=== PATIENT | female | born 1940 | race Caucasian/White ===

== ENCOUNTER 2019-03-04 10:17 | Inpatient (IN) ==
--- NOTE | 2019-03-04 10:46 | Emergency Department Note ---
Disposition Clinical Impression: Anemia Qualifiers: Anemia type: unspecified type Qualified Code(s): D64.9 - Anemia, unspecified Disposition: Admitted As Inpatient Condition: Fair Time of Disposition: 14:37 General Adult HPI - General Stated complaint: Abnormal Labs Time Seen by Provider: 03/04/19 10:24 Nursing Notes Reviewed: Yes Vital Signs Reviewed: Yes - History of Present Illness HPI Narrative: 78-year-old female with no significant past medical history. She states she has not seen a doctor in 10-20 years, a family member recently took her blood pressure at home where it was elevated so she was encouraged to find a primary c are provider recently. The primary care provider ordered general screening labs and imaging which was all negative except for a hemoglobin of 6.7, prompting the patient to present to the emergency department today. The patient denies any symptoms including shortness of breath, chest pain, abdominal pain, bleeding or bruising, dark melanotic stools, vaginal bleeding, reflux. She denies any past surgical history or chronic medical problems, she states she had cellulitis once and might have been told when she was young that she was anemic. She does not use tobacco or alcohol or any other illicit drugs. She does take aspirin, Tylenol, ibuprofen for general aches and pains but does not take any of them combined but does take at least one of those medications daily. Pain Scale: 0 - Related Data Home Medications Medication Instructions Recorded Confirmed Acetaminophen/Diphenhydramine 1 tab PO HS PRN 03/04/19 03/04/19 [Percogesic 325-12.5 mg Tablet] Aspirin/Caffeine [[facility] Back-Body 2 tab PO BID PRN 03/04/19 03/04/19 Pain Relief Cplt] Gluc/Armen-MSM#1/C/Js/Tahir/Bor 1 tab PO DAILY 03/04/19 03/04/19 [Osteo Bi-Flex Caplet] Naproxen Sodium [Aleve] 220 mg PO BID PRN 03/04/19 03/04/19 amLODIPine [Norvasc] 5 mg PO HS 03/04/19 03/04/19 Allergies Allergy/AdvReac Type Severity Reaction Status Date / Time No Known Allergies Allergy Verified 03/04/19 13:40 All systems ED: reviewed and negative except as stated. Review of Systems: As Per HPI Physical Exam - General General appearance: other (78-year-old female who appears stated age, sitting comfortably in bed, conversing normally, generally appears well) - Head Head exam: atraumatic, normocephalic - Eye Eye exam: Present: normal appearance, PERRL - Chest Chest inspection: Present: symmetric chest wall rise - Respiratory Respiratory exam: Present: normal lung sounds bilaterally - Cardiovascular Cardiovascular exam: Present: regular rate, normal rhythm, systolic murmur (4/6 systolic murmur heard best over the upper left sternal border), +S1, +S2 - Abdominal Exam Abdominal exam: Present: soft, Non-Tender - Extremities Exam Extremities exam: Present: other (1+ pitting edema in bilateral lower extremities, otherwise normal inspection of all 4 extremities) - Expanded Lower Extremity Exam Gait: observed and normal - Back Exam Back exam: Present: normal inspection - Neurological Exam Neurological exam: Present: alert, oriented X3 - Skin Skin exam: Present: warm, dry Course Course Narrative: Patient presents due to low hemoglobin of 6.7 identified on outpatient labs, she is otherwise completely asymptomatic, physical exam is benign. We will repeat hemoglobin and hematocrit and type and screen. If repeat hemoglobin is again below 7 we will transfuse 1 unit packed red blood cells and repeat hemoglobin and hematocrit. Vital Signs Temperature 98.5 F 03/04/19 10:22 Pulse Rate 79 03/04/19 10:22 Respiratory Rate 16 03/04/19 10:22 Blood Pressure 155/77 03/04/19 10:22 O2 Sat by Pulse Oximetry 100 03/04/19 10:22 Temperature 99.1 F 03/04/19 18:47 Pulse Rate 83 03/04/19 18:47 Respiratory Rate 17 03/04/19 18:47 Blood Pressure 168/86 03/04/19 18:47 O2 Sat by Pulse Oximetry 97 03/04/19 18:47 Oxygen Delivery Oxygen Delivery Room Air Medical Decision Making - [facility] Narrative Medical decision making narrative: Repeat hemoglobin was 6.2. 2 units packed red blood cells was initiated. Hemoccult negative, there is currently no etiology for the bleeding. Spoke with admitting hospitalist Dr. Kearns who accepted the patient for admission, but requested CT of the chest and abdomen with contrast to evaluate for bleeding. We will transfer the patient to care of the hospitalist service in stable medical condition, CTs of the abdomen and pelvis and chest will be interpreted by and followed by hospitalist service. - Lab Data Lab results reviewed: Yes I reviewed the patient's lab results. Result diagrams: 03/04/19 10:53 Lab Results 03/04/19 03/04/19 03/04/19 Range/Units 10:53 10:53 10:53 Hgb 6.2 L (11.5-15.4) g/dL Hct 24.1 L (35.3-44.9) % Iron (50-170) mcg/dL % Saturation (15-50) % Transferrin (203-362) mg/dL Ferritin (10-120) ng/mL Vitamin B12 255 (250-1100) pg/mL Folate > 22.3 H (3.0-16.0) ng/mL Stool Occult Bld Scrn (Negative) Blood Type O POSITIVE Antibody Screen NEGATIVE Crossmatch See Detail 03/04/19 03/04/19 Range/Units 10:53 11:47 Hgb (11.5-15.4) g/dL Hct (35.3-44.9) % Iron 13 L (50-170) mcg/dL % Saturation 3 L (15-50) % Transferrin 371 H (203-362) mg/dL Ferritin < 8 L (10-120) ng/mL Vitamin B12 (250-1100) pg/mL Folate (3.0-16.0) ng/mL Stool Occult Bld Scrn Negative (Negative) Blood Type Antibody Screen Crossmatch
--- NOTE | 2019-03-04 11:11 | Emergency Department Note ---
Disposition Clinical Impression: Anemia Qualifiers: Anemia type: unspecified type Qualified Code(s): D64.9 - Anemia, unspecified Disposition: Admitted As Inpatient Condition: Fair Time of Disposition: 16:16 (see actual ed d/c time) General Adult HPI - General Chief complaint: ED Recheck/Abnormal Lab/Rx Stated complaint: Abnormal Labs Time Seen by Provider: 03/04/19 10:24 Source: patient Limitations: no limitations - History of Present Illness Pain Scale: 0 - Related Data Home Medications Medication Instructions Recorded Confirmed Acetaminophen/Diphenhydramine 1 tab PO HS PRN 03/04/19 03/04/19 [Percogesic 325-12.5 mg Tablet] Aspirin/Caffeine [[facility] Back-Body 2 tab PO BID PRN 03/04/19 03/04/19 Pain Relief Cplt] Gluc/Armen-MSM#1/C/Js/Tahir/Bor 1 tab PO DAILY 03/04/19 03/04/19 [Osteo Bi-Flex Caplet] Naproxen Sodium [Aleve] 220 mg PO BID PRN 03/04/19 03/04/19 amLODIPine [Norvasc] 5 mg PO HS 03/04/19 03/04/19 Allergies Allergy/AdvReac Type Severity Reaction Status Date / Time No Known Allergies Allergy Verified 03/04/19 13:40 Past Medical History - Past Medical History Medical history: Reports: hypertension Psychiatric history: Reports: no psych history - Social History Smoking Status: Never smoker Alcohol use: Reports: none Drug use: Reports: none Physical Exam - General Limitations: no limitations General appearance: other (78-year-old female who appears stated age, sitting comfortably in bed, conversing normally, generally appears well) Course Vital Signs Temperature 98.5 F 03/04/19 10:22 Pulse Rate 79 03/04/19 10:22 Respiratory Rate 16 03/04/19 10:22 Blood Pressure 155/77 03/04/19 10:22 O2 Sat by Pulse Oximetry 100 03/04/19 10:22 Temperature 98.6 F 03/04/19 13:14 Pulse Rate 86 03/04/19 17:10 Respiratory Rate 18 03/04/19 17:10 Blood Pressure 177/73 03/04/19 17:10 O2 Sat by Pulse Oximetry 99 03/04/19 17:10 Oxygen Delivery Oxygen Delivery Room Air Medical Decision Making - Lab Data Result diagrams: 03/04/19 10:53 Lab Results 03/04/19 03/04/19 03/04/19 Range/Units 10:53 10:53 10:53 Hgb 6.2 L (11.5-15.4) g/dL Hct 24.1 L (35.3-44.9) % Iron (50-170) mcg/dL % Saturation (15-50) % Transferrin (203-362) mg/dL Ferritin (10-120) ng/mL Vitamin B12 255 (250-1100) pg/mL Folate > 22.3 H (3.0-16.0) ng/mL Stool Occult Bld Scrn (Negative) Blood Type O POSITIVE Antibody Screen NEGATIVE Crossmatch See Detail 03/04/19 03/04/19 Range/Units 10:53 11:47 Hgb (11.5-15.4) g/dL Hct (35.3-44.9) % Iron 13 L (50-170) mcg/dL % Saturation 3 L (15-50) % Transferrin 371 H (203-362) mg/dL Ferritin < 8 L (10-120) ng/mL Vitamin B12 (250-1100) pg/mL Folate (3.0-16.0) ng/mL Stool Occult Bld Scrn Negative (Negative) Blood Type Antibody Screen Crossmatch Critical Care Time Critical Care Time: No Attestation Statement - Attestation Attestation: I saw and evalated the patient and and reviewed the resident's note/PA note/LIGHT RAIL TRANSIT OPERATOR note, and I agree with the resident's findings and plan. I personally supervised and was present for the bourgeois/critical portions of the procedures. The medical decision-making was reviewed with the HUMAN PERFORMANCE PROFESSOR/PA/Advanced Practice Nurse/Resident Physician. I agree with the documented findings, disposition and treatment plan as described except to the extent set forth below. . Patient did go to the primary care physician yesterday for evaluation of elevated blood pressure and had labs which showed a hemoglobin of 6.7. This is a microcytic anemia. Patient does use ibuprofen intermittently for arthritis pain. She does not have any unintentional weight loss. No fevers. No blood in the urine or stool. No vomiting. No abdominal pain. This could certainly the from some gastritis and a slow upper GI bleed and we are rechecking the test today including the hemoglobin and hematocrit but will not recheck the electrolytes because these were done yesterday. Hemoccult is being done at this time also. 1111
[2019-03-04 11:16] LABS: Hematocrit 24.1 % (35.3-44.9); Hemoglobin 6.2 g/dL (11.5-15.4)
[2019-03-04] MEDS ORDERED: 0.9 % Sodium Chloride 250 ML ONE ×2 (12:44→18:17)
[2019-03-04] MEDS ORDERED: Isovue-370 500 ML BOTTLE IVP ONE (14:14)
[2019-03-04] MEDS ORDERED: Naloxone 0.4 MG/ML INJ IVP PRN (14:55)
[2019-03-04 15:13] LABS: % Iron Saturation 3 % (15-50); Iron 13 mcg/dL (50-170); Transferrin 371 mg/dL (203-362)
[2019-03-04 15:33] LABS: Ferritin < 8 ng/mL (10-120)
[2019-03-04] MEDS ORDERED: Acetaminophen 325 MG TABLET PO PRN (15:37)
--- NOTE | 2019-03-04 15:38 | Internal Med History&Physical ---
Date of Encounter: 03/04/19 Time of Encounter: 14:55 Internal Medicine - H&P: HPI Chief complaint: abnormal labs Admitted From: Home Plans for Post Hospital Care: Home History of present illness: Ms. Gonzales is a 78 year old female with PMH of arthritis of bilateral knee and hip, hypertension who presents to the ER for evaluation of abnormal lab findings. Patient states she was in her usual state of health until yesterday when her family member found her to have elevated BP prompting her to go see a doctor. Prior to yesterday, pt states she had not seen a doctor in over 10 years. Pt was started on Amlodipine and was sent home after routine lab work was drawn. Pt was asked to return to the ER today for evaluation of Hgb of 6.7, repeat Hgb in the ER was 6.2. She was started on PRBC transfusion. During my evaluation, pt reports of taking over the counter medications (Ibuprofen, aleve) for arthritis pain. She states she did take the BP medication last night as prescribed by her PCP. She denies any headache, dizziness, lightheadedness, chest pain, sob, abd pain, n,v, fever, or chills. No dark stools, hemetemesis, weight loss reported. No acute blood loss reported. Stool occult negative in the ER and CBC findings consistent with microcytic anemia. I spoke with the lab to add iron studies, b12, and folate level to previously drawn labs prior to initiation of PRBC transfusion CT chest/CT abd/pelvis done in the ER, report pending. Pt is also noted to hypertensive in the ER. I have ordered home dose of Aml odipine and Hydralazine. RN requested to recheck BP and administer Amlodipine. Past Med Surg Social Fam HX - Past Medical History Medical history: hypertension Psychiatric history: no psych history - Social History Smoking Status: Never smoker Alcohol use: none Drug use: none Internal Medicine - H&P: Meds Acetaminophen/Diphenhydramine [Percogesic 325-12.5 mg Tablet] 1 tab PO HS PRN 03/04/19 [History] Aspirin/Caffeine [[facility]vs Back-Body Pain Relief Cplt] 2 tab PO BID PRN 03/04/19 [History] Gluc/Armen-MSM#1/C/Js/Tahir/Bor [Osteo Bi-Flex Caplet] 1 tab PO DAILY 03/04/19 [History] Naproxen Sodium [Aleve] 220 mg PO BID PRN 03/04/19 [History] amLODIPine [Norvasc] 5 mg PO HS 03/04/19 [History] Allergy/AdvReac Type Severity Reaction Status Date / Time No Known Allergies Allergy Verified 03/04/19 13:40 All Systems PM: A 10-system review of systems was performed and is negative for pertinent findings except as documented above in the HPI. Review of systems: Ten point ROS is negative except as listed in the HPI - Constitutional Vitals: Temp Pulse Resp BP Pulse Ox 98.6 F 75 16 172/68 100 03/04/19 13:14 03/04/19 13:14 03/04/19 13:14 03/04/19 13:14 03/04/19 13:14 General appearance: Present: A&O X 3 Exam: General: No acute distress, AAO x 3, obese HEENT: EOMI, PERRLA, NC/AT, no scleral icterus Respiratory: Clear to auscultate bilaterally, no wheezing, no rales Cardiovascular: Regular, Rate, Rhythm, + murmur GI: Soft, Non tender, non distended, normal bowel sounds Ext: b/l LE edema, no tenderness, positive pulses Neuro: AAO x 3, no focal deficits, CN II-XII grossly intact Rest of the clinical exam is noncontributory Internal Med - H&P Results - Labs CBC & Chem 7: 03/04/19 10:53 Labs: Short CBC 03/04/19 Range/Units 10:53 Hgb 6.2 L (11.5-15.4) g/dL Hct 24.1 L (35.3-44.9) % - Summary of Assessment and Plan Summary of Assessment and Plan: Ms. Gonzales is a 78 year old female with PMH of arthritis of bilateral knee and hip, hypertension who presents to the ER for evaluation of abnormal lab findings. Assessment/Plan: 1. Anemia currently being transfused 2units PRBC transfusions f/u iron studies, Vitamin B12, Folate level stool occult negative however pt on NSAID therapy at home for arthritis. Will f/u with GI in regards to possible work up inpatient vs. outpatient. will obtain hematology evaluation will closely monitor H&H NPO after midnight for possible EGD in am f/u CT chest, CT abd/pelvis to further evaluate and rule out malignancy 2. HTN Will start home dose of Amlodipine 5mg PO qdaily Hydralazine 10mg IV q6h PRN SBP>150 will closely monitor BP 3. Chronic arthritis tylenol prn pain avoid NSAID use DVT ppx: SCDs LOS < 2 midnights Care plan discussed with patient/consulting provider - Time Spent With Patient Total time spent is greater than 50% in coordination of care (as documented) at patient's floor/unit and/or counseling patient: 25 - 35 minutes
[2019-03-04 15:41] LABS: Folate > 22.3 ng/mL (3.0-16.0); Vitamin B12 255 pg/mL (250-1100)
[2019-03-04] MEDS: amLODIPine 5 MG TABLET PO SCH ×2 (18:19→21:36)
[2019-03-05 03:57] LABS: Eosinophils % 3.4 %; Red Cell Distribution Width 20.8 % (11.5-14.5)
[2019-03-05 03:58] LABS: Basophils % 0.5 %; Eosinophils # 0.1 K/mcL (0.0-0.6); Hematocrit 28.6 % (35.3-44.9); Hemoglobin 7.9 g/dL (11.5-15.4); Immature Granulocytes % 0.5 % (0-4); Lymphocytes # 0.9 K/mcL (0.6-4.6); Lymphocytes % 21.3 %; Mean Corpuscular HGB Conc 27.6 g/dL (31.6-35.5); Mean Corpuscular Hemoglobin 19.7 pg (28.0-33.3); Mean Corpuscular Volume 71.3 fL (83.0-100.0); Mean Platelet Volume 9.9 fL (9.4-12.4); Monocytes # 0.4 K/mcL (0.0-1.3); Monocytes % 9.9 %; Platelet Count 192 K/mcL (140-400); Red Blood Count 4.01 M/mcL (3.82-4.97); Segmented Neutrophils % 64.4 %
[2019-03-05 04:05] LABS: BUN/Creatinine Ratio 23 (6-26); Blood Urea Nitrogen 21 mg/dL (8-23); Calcium 9.2 mg/dL (8.6-10.3); Carbon Dioxide 24 mEq/L (23-29); Chloride 108 mEq/L (98-107); Glucose 124 mg/dL (70-105); Osmolality,Calculated 294 (280-300); Phosphorous 4.1 mg/dL (2.7-4.5); Potassium 3.7 mEq/L (3.5-5.1); Sodium 140 mEq/L (136-145); eGFR For Non-African Americans > 60 (> 60)
[2019-03-05 04:39] LABS: Neutrophils # 2.6 K/mcL (1.6-8.9)
[2019-03-05 05:27] LABS: Anisocytosis 1+ (Not Present); Hypochromasia Present (Not Present); Platelet Estimate Normal (Normal)
--- NOTE | 2019-03-05 08:27 | Anesthesia Evaluation PreOp ---
Date of Encounter: 03/05/19 Time of Encounter: 09:35 - Past History Planned Operation: EGD Cardiac History: HTN Pulmonary History: Denies Any Significant HX DOCUMENT RESTORER History: Denies Any Significant HX Other Medical History: Denies Any Significant HX Anesthesia History: Past Anesthesia (no prior GA) Alcohol Use: none Drug use: none Medications and Allergies Acetaminophen/Diphenhydramine [Percogesic 325-12.5 mg Tablet] 1 tab PO HS PRN 03/04/19 [History] Aspirin/Caffeine [[facility]vs Back-Body Pain Relief Cplt] 2 tab PO BID PRN 03/04/19 [History] Gluc/Armen-MSM#1/C/Js/Tahir/Bor [Osteo Bi-Flex Caplet] 1 tab PO DAILY 03/04/19 [History] Naproxen Sodium [Aleve] 220 mg PO BID PRN 03/04/19 [History] amLODIPine [Norvasc] 5 mg PO HS 03/04/19 [History] Allergy/AdvReac Type Severity Reaction Status Date / Time No Known Allergies Allergy Verified 03/04/19 13:40 - Meds/Allergy Pre-op Review Medications Reviewed: Yes Allergies Reviewed: Yes Beta Blockers on Current Med List: No Anesthesia Results - Labs 03/05/19 02:54 03/05/19 02:54 Anesthesia Exam Vital Signs/O2 Sat/Glucose, Most Recent Temp Pulse Resp BP Pulse Ox 97.7 F 79 16 181/84 96 03/05/19 06:42 03/05/19 06:42 03/05/19 06:42 03/05/19 06:42 03/05/19 06:42 Blood Glucose* 115 Height: 5'3''/1.6m Weight: 196 lbs/89.2 kg NPO (# of Hours): 8 Pain Scale: 0 Pain Scale Used: Numeric (1 - 10) - HEENT Pupil (Motor): EOMI Mallampati: II Teeth: Edentulous Denture Type: Upper: Complete, Lower: Complete Oral Opening: Greater than 3 - DOCUMENT RESTORER LOC: Oriented DOCUMENT RESTORER Motor: Normal RUE, Normal LUE, Normal RLE, Normal LLE, Normal Face DOCUMENT RESTORER Sensory: Normal: RUE, RLE, LLE, Face, Deficit: LUE - Cardiac Rhythm: Regular Murmur: Systolic - Pulmonary Breath Sounds: bilateral Clear Respiratory Effort: Symmetrical Anesthesia Assess/Plan ASA Score: 2 Level of consciousness: Cooperative, Oriented, Tranquil Anesthetic Plan: MAC Monitoring Plan: Standard Monitors
[2019-03-05] MEDS ORDERED: *HR* Propofol 200 MG/20 ML VIAL IVP ONE (08:40)
[2019-03-05] MEDS ORDERED: Lidocaine -MPF 2% 2 ML VIAL ONE (08:40)
[2019-03-05] MEDS ORDERED: *HR* PHENYLEPHRINE 1,000 MCG/10 ML SYRINGE IVP ONE (08:40)
[2019-03-05] MEDS: amLODIPine 5 MG TABLET PO SCH (10:41)
[2019-03-05] MEDS: Cyanocobalamin (B-12) 1,000 MCG/ML VIAL SQ SCH (10:42)
[2019-03-05 12:45] LABS: Alanine Aminotransferase 7 Units/L (7-52); Albumin 3.7 g/dL (3.5-5.7); Albumin/Globulin Ratio 1.4 (1.1-2.2); Alkaline Phosphatase 67 Units/L (34-104); Aspartate Amino Transferase 14 Units/L (13-39); Bilirubin,Direct 0.1 mg/dL (0.0-0.2); Bilirubin,Indirect 0.4 mg/dL (0.0-1.2); Bilirubin,Total 0.5 mg/dL (0.3-1.0); Globulin 2.6 g/dL (2.4-3.5); Total Protein 6.3 g/dL (6.4-8.9)
--- NOTE | 2019-03-05 13:08 | Gastroenterology Consult Note ---
Date of Encounter: 03/05/19 Time of Encounter: 09:30 - Time Spent With Patient Total time spent is greater than 50% in coordination of care (as documented) at patient's floor/unit and/or counseling patient: GI History of Present Illness - Data of Consult Patient: new to practice Consult date: 03/05/19 Requesting Physician: Nika Mariscal MD - Consult Narrative Reason for consult: Anemia History of present illness: Ms. Gonzales is a 78 year old female with PMHx of arthritis and HTN who presented to the ED with anemia. Hgb 6.7 on 03/03 and on presentation here Hgb 6.2. She received 2 units PRBC and this AM Hgb 7.9 with MCV 71.3. On admisison iron 13, ferritin <8, vitamin B12 255, folate >22.3, and fecal occult blood test negative. She has been using ibuprofen and Aleve for her arthritis pain. CT A/P shows hiatal hernia, circumferential distal esophageal wall thickening, gastritis, diverticulosis, mild intra-and extrahepatic biliary ductal dilation with noncalcified choledocholithiasis, gallstones. Procedures: None NSAIDs: ibuprofen, Aleve Anticoagulation: None A/P 1. Anemia Hgb 6.7 on 03/03 and on presentation here Hgb 6.2. On admisison iron 13, ferritin <8, vitamin B12 255, folate >22.3, and fecal occult blood test negative. She received 2 units PRBC and this AM Hgb 7.9 with MCV 71.3. Continue to monitor CBC and transfuse PRBC as needed. Plan for EGD today. If EGD negative, consider colonoscopy. 2. Choledoch[address] CT A/P shows hiatal hernia, circumferential distal esophageal wall thickening, gastritis, diverticulosis, mild intra-and extrahepatic biliary ductal dilation with noncalcified choledocholithiasis, gallstones. Check MRCP. LFTs within normal limits-TB 0.5, AST 14, ALT 7. Past Med Surg Social Fam HX - Past Medical History Medical history: hypertension Psychiatric history: no psych history - Social History Smoking Status: Never smoker Smokeless Tobacco Status: No Alcohol use: none Drug use: none - Gastrointestinal Gastrointestinal: Present: as per HPI - Constitutional Constitutional: as per HPI - EENT Eyes: as per HPI Ears: Present: as per HPI Nose, mouth and throat: Present: as per HPI - Cardiovascular Cardiovascular ROS: Present: as per HPI - Respiratory Respiratory IM: Present: as per HPI - Genitourinary Genitourinary: Absent: change in color, Urinary frequency - Neurological ROS Neurological GI: Present: as per HPI - Hematologic/Lymphatic Hematologic/Lymphatic pediatric: Present: as per HPI - Musculoskeletal Musculoskeletal ROS GI: Present: as per HPI - Integumentary Integumentary GI: Present: as per HPI - Psychiatric ROS Psychiatric GI: Present: as per HPI - Endocrine Endocrine IM: Present: as per HPI - Constitutional Vitals: Temp Pulse Resp BP Pulse Ox 98.2 F 91 16 162/73 97 03/05/19 11:58 03/05/19 09:44 03/05/19 11:58 03/05/19 11:58 03/05/19 11:58 General appearance: Present: cooperative, A&O X 3, no acute distress, answers questions appropriately - Head Head exam: Present: atraumatic, normocephalic - Eye Eye exam: Present: normal appearance, sclera anicteric - ENT ENT exam: Present: mucous membranes dry - Neck Neck exam general surgery: Present: normal inspection, trachea midline - Respiratory Respiratory exam: Present: CTAB. Absent: rales, rhonchi, wheezes - Cardiovascular Cardiovascular exam: Present: RRR, +S1, +S2 - GI/Abdominal GI/Abdominal exam: Present: soft, no peritoneal signs. Absent: distended, firm, guarding, tenderness - Rectal Rectal exam: Present: deferred - Extremities Exam Extremities exam: Present: warm - Neurological Exam Neurological exam: Present: no focal deficits - Psychiatric Psychiatric exam: Present: normal affect, normal mood - Skin Skin exam: Present: dry, intact, normal color, warm Results - Labs CBC & Chem 7: 03/05/19 02:54 03/05/19 02:54 Labs: Last Result 03/05/19 02:54 Calcium 9.2 Entire Visit 03/05/19 03/05/19 02:54 02:54 Hgb 7.9 L D Hct 28.6 L Total Bilirubin 0.5 AST 14 ALT 7 - Impressions Impressions Abdomen/Pelvis CT 03/04/19 14:14 IMPRESSION: 1. Small to moderate sliding hiatal hernia. Suggestion of circumferential wall thickening in the distal thoracic esophagus may represent associated esophagitis. Stranding adjacent to the gastric body may represent gastritis. Consider endoscopy. 2. Mild colonic diverticulosis, a potential source of occult gastrointestinal bleeding. 3. Suspected noncalcified gallstones. Suggestion of hyperenhancement of the cystic duct, a finding that can be seen with cholecystitis. However, no additional findings of cholecystitis are identified. Consider further evaluation with sonography or a nuclear medicine hepatobiliary scan if there are clinical findings of cholecystitis. 4. Mild intrahepatic and extrahepatic biliary dilation with suspected noncalcified choledocholithiasis. Consider MRCP. 5. Solid nodules in the right middle and left lower lobes measure up to 0.6 cm x 0.5 cm, most likely benign sequelae of an infectious or inflammatory process. Recommend follow-up chest CT in 3-6 months as below. Of note, there is also suspected mucoid impaction in a lingular bronchus, although an occult endobronchial lesion is not excluded. Recommend attention on follow-up imaging. 6. Indeterminate bilateral adrenal lesions measuring up to 2.1 cm x 1.1 cm, likely adenomas. Recommend further evaluation with adrenal protocol abdomen CT (preferred) or MRI on a nonemergent basis. 7. 0.7 cm lesion in the interpolar region of the left kidney with indeterminate density, more likely a cyst with proteinaceous contents than a neoplasm. Recommend follow-up with renal protocol abdomen MRI (preferred) or CT in 6-12 months per the ACR recommendations for incidental renal masses. 8. 2.9 cm x 2.3 cm right adnexal cystic lesion with septation and suggestion of mural nodularity, potentially a right ovarian ovarian neoplasm. Recommend further evaluation with sonography on a nonemergent basis. 9. Marked right renal atrophy with right nephrolithiasis. Suspected urothelial enhancement in the right renal pelvis may represent superimposed pyelitis. 10. Additional incidental findings as above. RECOMMENDATIONS: Fleischner Society guidelines for follow-up and management of incidentally detected pulmonary nodules: Multiple Solid Nodules: Nodule size equals 6-8 mm In a low-risk patient, CT at 3-6 months, then consider CT at 18-24 months. In a high-risk patient, CT at 3-6 months, then CT at 18-24 months. - Low risk patients include individuals with minimal or absent history of smoking and other known risk factors. - High risk patients include individuals with a history or smoking or known risk factors. Radiology 2017 http://pubs.rsna.org/doi/full/10.1148/radiol.2420489916 2.9 cm indeterminate ovarian cyst. Recommend prompt follow-up with pelvic US. Reference: J Am Angle Radiol 2013;10:675-681 D/ / Quinton Paul MD / Quinton Paul MD Interpreting Provider: Quinton Paul MD Chest CT 03/04/19 14:14 IMPRESSION: 1. Small to moderate sliding hiatal hernia. Suggestion of circumferential wall thickening in the distal thoracic esophagus may represent associated esophagitis. Stranding adjacent to the gastric body may represent gastritis. Consider endoscopy. 2. Mild colonic diverticulosis, a potential source of occult gastrointestinal bleeding. 3. Suspected noncalcified gallstones. Suggestion of hyperenhancement of the cystic duct, a finding that can be seen with cholecystitis. However, no additional findings of cholecystitis are identified. Consider further evaluation with sonography or a nuclear medicine hepatobiliary scan if there are clinical findings of cholecystitis. 4. Mild intrahepatic and extrahepatic biliary dilation with suspected noncalcified choledocholithiasis. Consider MRCP. 5. Solid nodules in the right middle and left lower lobes measure up to 0.6 cm x 0.5 cm, most likely benign sequelae of an infectious or inflammatory process. Recommend follow-up chest CT in 3-6 months as below. Of note, there is also suspected mucoid impaction in a lingular bronchus, although an occult endobronchial lesion is not excluded. Recommend attention on follow-up imaging. 6. Indeterminate bilateral adrenal lesions measuring up to 2.1 cm x 1.1 cm, likely adenomas. Recommend further evaluation with adrenal protocol abdomen CT (preferred) or MRI on a nonemergent basis. 7. 0.7 cm lesion in the interpolar region of the left kidney with indeterminate density, more likely a cyst with proteinaceous contents than a neoplasm. Recommend follow-up with renal protocol abdomen MRI (preferred) or CT in 6-12 months per the ACR recommendations for incidental renal masses. 8. 2.9 cm x 2.3 cm right adnexal cystic lesion with septation and suggestion of mural nodularity, potentially a right ovarian ovarian neoplasm. Recommend further evaluation with sonography on a nonemergent basis. 9. Marked right renal atrophy with right nephrolithiasis. Suspected urothelial enhancement in the right renal pelvis may represent superimposed pyelitis. 10. Additional incidental findings as above. RECOMMENDATIONS: Fleischner Society guidelines for follow-up and management of incidentally detected pulmonary nodules: Multiple Solid Nodules: Nodule size equals 6-8 mm In a low-risk patient, CT at 3-6 months, then consider CT at 18-24 months. In a high-risk patient, CT at 3-6 months, then CT at 18-24 months. - Low risk patients include individuals with minimal or absent history of smoking and other known risk factors. - High risk patients include individuals with a history or smoking or known risk factors. Radiology 2017 http://pubs.rsna.org/doi/full/10.1148/radiol.6184560832 2.9 cm indeterminate ovarian cyst. Recommend prompt follow-up with pelvic US. Reference: J Am Angle Radiol 2013;10:675-681 D/ / Quinton Paul MD / Quinton Paul MD Interpreting Provider: Quinton Paul MD Echocardiogram 03/04/19 15:53 Impressions: LVEF 65%. Normal LV chamber size, wall thickness and function. Mild left ventricular diastolic dysfunction. Normal right ventricular structure and function. Aortic valve not well visualized. Mild aortic sclerosis suggested by Doppler. Mean gradient 10 mmHg. Mild pulmonary hypertension. Estimated RVSP 43 mmHg. No pericardia effusion. Left Ventricular Wall Motion: Rest Echo Findings All wall segments showed normal motion. Findings: Study Quality * Technically adequate exam. ECG Findings * Normal sinus rhythm. Left Ventricle * LVEF 65%. * Normal LV chamber size, wall thickness and function. * Mild left ventricular diastolic dysfunction. Right Ventricle * Normal right ventricular structure and function. Left Atrium * Moderately dilated left atrium. Right Atrium * Moderately dilated right atrium. Interatrial Septum * No evidence of PFO by color Doppler. Aortic Valve * Aortic valve not well visualized. * No aortic regurgitation. * Mild aortic sclerosis suggested by Doppler. Mean gradient 10 mmHg. Mitral Valve * Normal mitral valve structure and function. * No mitral stenosis. * Trace mitral regurgitation. Tricuspid Valve * Normal tricuspid valve structure and function. * Trace tricuspid regurgitation. * Mild pulmonary hypertension. Estimated RVSP 43 mmHg. Pulmonic Valve * Pulmonic valve not well visualized. * No pulmonic regurgitation. Aorta * Normally sized aortic root. Pericardium * The pericardium appears normal. IVC * Normal IVC dimensions and inspiratory collapse. Pulmonary Artery * Normal visualized portions of the main pulmonary artery. Consult Discharge Plan - Plan Referrals: Sheila Brito CNP [Primary Care Provider] -
--- NOTE | 2019-03-05 13:15 | Oncology Inp Consult Note ---
<Raya Davila L - Last Filed: 03/05/19 15:23> Date of Encounter: 03/05/19 Time of Encounter: 11:00 Assessment and Plan (1) Anemia Status: Acute Assessment and plan: Microcytic, hypochromic anemia Unable to trend baseline, patient has not been seen by a doctor in 10 years Does not take blood thinners Denies s/s bleeding FOBT negative B12/Iron deficiency noted Folate replete LDH/TSH/Ind bili normal GI consulted and following- EGD which revealed non bleeding erosions, non bleeding gastric ulcers Plan: Recommend screening colonoscopy inpatient vs. outpatient B12 SQ Venofer 400 IV x1, will follow with oral iron, please continue at d/c In regards to her multiple incidental findings noted on CT imaging, further evaluation with MRI abdomen with contrast and surveillance imaging may be managed on an outpatient basis by either PCP or Dr. Gallo Will arrange for follow up with Dr. Gallo in ~2 weeks Qualifiers: Anemia type: unspecified type Qualified Code(s): D64.9 - Anemia, unspec ified - Data of Consult Patient: new to practice Consult date: 03/05/19 Requesting Physician: Nika Mariscal MD Primary Care Provider: Sheila Brito CNP - Consult Narrative Reason for consult: Anemia History of present illness: Ms. Kathie Gonzales is a 78 year old female with past medical history significant for arthritis and HTN. She was asked to present to ER after a follow up with newly established PCP (patient has not been seen in over 10 years) for HTN, she was noted to have anemia with hgb 6.2 on routine labs. She has been taking ibuprofen/aleve OTC for her bilateral hip/knee arthritis pain. Patient denies headahce, nausea, chest pain, SOB, abdominal pain, nausea, vomiting, diarrhea, constipation, bowel habit changes, unintended weight loss or appetite changes, melena or hematochezia. She has noticed an increase in BLE edema. Over the past year her "arthritis" pain has worsened in her hips/knees and now uses a cane for ambulation. In ER she was started on PRBC transfusion. CT chest/abdomen/pelvis obtained in ER, reviewed in A&P Past Med Surg Social Fam HX - Past Medical History Medical history: hypertension Psychiatric history: no psych history - Social History Smoking Status: Never smoker Smokeless Tobacco Status: No Alcohol use: none Drug use: none Medications and Allergies Acetaminophen/Diphenhydramine [Percogesic 325-12.5 mg Tablet] 1 tab PO HS PRN 03/04/19 [History] Aspirin/Caffeine [[facility]vs Back-Body Pain Relief Cplt] 2 tab PO BID PRN 03/04/19 [History] Gluc/Armen-MSM#1/C/Js/Tahir/Bor [Osteo Bi-Flex Caplet] 1 tab PO DAILY 03/04/19 [History] Naproxen Sodium [Aleve] 220 mg PO BID PRN 03/04/19 [History] amLODIPine [Norvasc] 5 mg PO HS 03/04/19 [History] Allergy/AdvReac Type Severity Reaction Status Date / Time No Known Allergies Allergy Verified 03/04/19 13:40 Constitutional: Absent: anorexia, chills, fatigue, fever(s), frequent falls, headache(s), weakness, weight loss Eyes: Absent: change in vision Nose, mouth and throat: Absent: dysphagia, odynophagia Cardiovascular: Absent: chest pain Respiratory: Absent: cough, dyspnea Gastrointestinal: Absent: abdominal pain, change in bowel habits, change in stool character, constipation, diarrhea, hematochezia, melena, nausea, vomiting Genitourinary: Absent: dysuria, hematuria Musculoskeletal: Present: arthralgias. Absent: muscle weakness Integumentary: Absent: rash, wounds Neurological: Absent: dizziness, focal weakness Psychiatric: Present: as per HPI Hematologic/Lymphatic: Present: as per HPI Oncology - Exam - Constitutional General appearance: average body habitus, cooperative, no acute distress, no febrile - Head Head exam: Present: atraumatic - ENT ENT exam: Present: mucous membranes moist, normal oropharynx - Respiratory Respiratory exam: Present: CTAB. Absent: respiratory distress - Cardiovascular Cardiovascular exam: Present: RRR - GI/Abdominal GI/Abdominal exam: Present: normal bowel sounds, soft. Absent: tenderness - Extremities Exam Extremities exam: Present: pedal edema. Absent: calf tenderness Additional comments: BLE non pitting edema - Neurological Exam Neurological exam: Present: alert, oriented X3, no focal deficits, strengths equal and symetr throughout - Psychiatric Psychiatric exam: Present: normal affect, normal mood - Skin Skin exam: Present: dry, normal color, warm Consult Discharge Plan - Plan Referrals: Sheila Brito PREPARATOR [Primary Care Provider] - Inpatient Charges Provider: Dr. Marilu Gallo <Miguelangel Gallo - Last Filed: 03/05/19 21:29> Date of Encounter: 03/05/19 - Data of Consult Requesting Physician: Nika Mariscal MD Primary Care Provider: Sheila Brito CNP - Attending Attestation I have seen and examined Ms. Gonzales and agree with the assessment and plan put in place by Ms Davila. Kirill, she is a very pleasant elderly woman in no acute distress. Lungs are clear to auscultation. Heart regular rate and rhythm. Abdomen is soft, nontender, nondistended. Patient has evidence of severe iron deficiency that clinically is most likely from a gastrointestinal source. EGD completed today. Will need colonoscopy. To address anemia, we will general office associate vendor for 400 mg IV times one. I would start Folivane/Integra plus 1 tablet twice a day at time of discharge. She has a biliary tree abnormality for which MRCP has been completed and showed abrupt narrowing of the bile duct at the level of the ampulla. LFTs are normal. GI is following. In addition, she has a possible renal lesion which will need further follow-up with MRI imaging. There is a right adnexal lesion as well. I will plan for MRI of the abdomen and pelvis with and without IV contrast is now outpatient. I will arrange follow-up in my office in 2 weeks with a CBC and iron studies. We will follow-up on his other imaging our maladies at that time. Patient is anxious to return home at some point in the near future. We will otherwise sign off. Please do not hesitate to call with any concerns or questions. Inpatient Charges Provider: Dr. Marilu Gallo Consult - Inpatient Medicare Only: [id number]
--- NOTE | 2019-03-05 14:59 | Internal Med Progress Note ---
Hospitalist Progress Note - Encounter Date of Encounter: 03/05/19 Time of Encounter: 14:56 - Subjective Interval History: Patient seen and examined earlier today with family present at bedside. Pt is scheduled for EGD later today. Denies any abd pain, n/v, fever, or chills. No acute bleeding reported. No overnight events reported. Ten point ROS is negative except as listed above - Exam Vitals: Temp Pulse Resp BP Pulse Ox 98.2 F 91 16 162/73 97 03/05/19 11:58 03/05/19 09:44 03/05/19 11:58 03/05/19 11:58 03/05/19 11:58 Exam: General: No acute distress, AAO x 3, obese HEENT: EOMI, PERRLA, NC/AT, no scleral icterus Respiratory: Clear to auscultate bilaterally, no wheezing, no rales Cardiovascular: Regular, Rate, Rhythm, + murmur GI: Soft, Non tender, non distended, normal bowel sounds Ext: b/l LE edema, no tenderness, positive pulses Neuro: AAO x 3, no focal deficits, CN II-XII grossly intact Rest of the clinical exam is noncontributory - Summary of Assessment and Plan Summary of Assessment and Plan: Ms. Gonzales is a 78 year old female with PMH of arthritis of bilateral knee and hip, hypertension who presents to the ER for evaluation of abnormal lab findings. Assessment/Plan: 1. Anemia s/p 2 units PRBC transfusion repeat H&H within acceptable range iron studies consistent with iron deficiency anemia pt receiving IV venofer. Hematology evaluation appreciated GI on board and evaluation appreciated. Pt scheduled for EGD today Scheduled for MRCP given CT abd/pelvis findings 2. HTN remains hypertensive increased Amlodipine to 10mg PO qdaily added Lisinopril 10mg PO qdaily Hydralazine 10mg IV q6h PRN SBP>150 will closely monitor BP 3. Chronic arthritis tylenol prn pain avoid NSAID use 4. Choledocholithiasis CT A/P shows hiatal hernia, circumferential distal esophageal wall thickening, gastritis, diverticulosis, mild intra-and extrahepatic biliary ductal dilation with noncalcified choledocholithiasis, gallstones f/u MRCP LFTs wnl will f/u with GI based on MRCP findings GI evaluation appreciated DVT ppx: SCDs Care plan discussed with patient/consulting provider/family/RN - Time Spent with Patient Total time spent is greater than 50% in coordination of care (as documented) at patient's floor/unit and/or counseling patient: 25 - 35 minutes Internal Medicine: Result - Labs CBC & Chem 7: 03/05/19 02:54 03/05/19 02:54 Labs: Short CBC 03/05/19 Range/Units 02:54 WBC 4.1 L (4.3-11.1) K/mcL Hgb 7.9 L D (11.5-15.4) g/dL Hct 28.6 L (35.3-44.9) % Plt Count 192 (140-400) K/mcL Neutrophils # 2.6 (1.6-8.9) K/mcL BMP 03/05/19 02:54 Sodium 140 Potassium 3.7 Chloride 108 H Carbon Dioxide 24 BUN 21 Creatinine 0.90 Glucose 124 H Calcium 9.2 Liver Function 03/05/19 Range/Units 02:54 Total Bilirubin 0.5 (0.3-1.0) mg/dL Direct Bilirubin 0.1 (0.0-0.2) mg/dL AST 14 (13-39) Units/L ALT 7 (7-52) Units/L Alkaline Phosphatase 67 (34-104) Units/L Albumin 3.7 (3.5-5.7) g/dL - Impressions Impressions Abdomen/Pelvis CT 03/04/19 14:14 IMPRESSION: 1. Small to moderate sliding hiatal hernia. Suggestion of circumferential wall thickening in the distal thoracic esophagus may represent associated esophagitis. Stranding adjacent to the gastric body may represent gastritis. Consider endoscopy. 2. Mild colonic diverticulosis, a potential source of occult gastrointestinal bleeding. 3. Suspected noncalcified gallstones. Suggestion of hyperenhancement of the cystic duct, a finding that can be seen with cholecystitis. However, no additional findings of cholecystitis are identified. Consider further evaluation with sonography or a nuclear medicine hepatobiliary scan if there are clinical findings of cholecystitis. 4. Mild intrahepatic and extrahepatic biliary dilation with suspected noncalcified choledocholithiasis. Consider MRCP. 5. Solid nodules in the right middle and left lower lobes measure up to 0.6 cm x 0.5 cm, most likely benign sequelae of an infectious or inflammatory process. Recommend follow-up chest CT in 3-6 months as below. Of note, there is also suspected mucoid impaction in a lingular bronchus, although an occult endobronchial lesion is not excluded. Recommend attention on follow-up imaging. 6. Indeterminate bilateral adrenal lesions measuring up to 2.1 cm x 1.1 cm, likely adenomas. Recommend further evaluation with adrenal protocol abdomen CT (preferred) or MRI on a nonemergent basis. 7. 0.7 cm lesion in the interpolar region of the left kidney with indeterminate density, more likely a cyst with proteinaceous contents than a neoplasm. Recommend follow-up with renal protocol abdomen MRI (preferred) or CT in 6-12 months per the ACR recommendations for incidental renal masses. 8. 2.9 cm x 2.3 cm right adnexal cystic lesion with septation and suggestion of mural nodularity, potentially a right ovarian ovarian neoplasm. Recommend further evaluation with sonography on a nonemergent basis. 9. Marked right renal atrophy with right nephrolithiasis. Suspected urothelial enhancement in the right renal pelvis may represent superimposed pyelitis. 10. Additional incidental findings as above. RECOMMENDATIONS: Fleischner Society guidelines for follow-up and management of incidentally detected pulmonary nodules: Multiple Solid Nodules: Nodule size equals 6-8 mm In a low-risk patient, CT at 3-6 months, then consider CT at 18-24 months. In a high-risk patient, CT at 3-6 months, then CT at 18-24 months. - Low risk patients include individuals with minimal or absent history of smoking and other known risk factors. - High risk patients include individuals with a history or smoking or known risk factors. Radiology 2017 http://pubs.rsna.org/doi/full/10.1148/radiol.5135586933 2.9 cm indeterminate ovarian cyst. Recommend prompt follow-up with pelvic US. Reference: J Am Angle Radiol 2013;10:675-681 D/ / Quinton Paul MD / Quinton Paul MD Interpreting Provider: Quinton Paul MD Chest CT 03/04/19 14:14 IMPRESSION: 1. Small to moderate sliding hiatal hernia. Suggestion of circumferential wall thickening in the distal thoracic esophagus may represent associated esophagitis. Stranding adjacent to the gastric body may represent gastritis. Consider endoscopy. 2. Mild colonic diverticulosis, a potential source of occult gastrointestinal bleeding. 3. Suspected noncalcified gallstones. Suggestion of hyperenhancement of the cystic duct, a finding that can be seen with cholecystitis. However, no additional findings of cholecystitis are identified. Consider further evaluation with sonography or a nuclear medicine hepatobiliary scan if there are clinical findings of cholecystitis. 4. Mild intrahepatic and extrahepatic biliary dilation with suspected noncalcified choledocholithiasis. Consider MRCP. 5. Solid nodules in the right middle and left lower lobes measure up to 0.6 cm x 0.5 cm, most likely benign sequelae of an infectious or inflammatory process. Recommend follow-up chest CT in 3-6 months as below. Of note, there is also suspected mucoid impaction in a lingular bronchus, although an occult endobronchial lesion is not excluded. Recommend attention on follow-up imaging. 6. Indeterminate bilateral adrenal lesions measuring up to 2.1 cm x 1.1 cm, likely adenomas. Recommend further evaluation with adrenal protocol abdomen CT (preferred) or MRI on a nonemergent basis. 7. 0.7 cm lesion in the interpolar region of the left kidney with indeterminate density, more likely a cyst with proteinaceous contents than a neoplasm. Recommend follow-up with renal protocol abdomen MRI (preferred) or CT in 6-12 months per the ACR recommendations for incidental renal masses. 8. 2.9 cm x 2.3 cm right adnexal cystic lesion with septation and suggestion of mural nodularity, potentially a right ovarian ovarian neoplasm. Recommend further evaluation with sonography on a nonemergent basis. 9. Marked right renal atrophy with right nephrolithiasis. Suspected urothelial enhancement in the right renal pelvis may represent superimposed pyelitis. 10. Additional incidental findings as above. RECOMMENDATIONS: Fleischner Society guidelines for follow-up and management of incidentally detected pulmonary nodules: Multiple Solid Nodules: Nodule size equals 6-8 mm In a low-risk patient, CT at 3-6 months, then consider CT at 18-24 months. In a high-risk patient, CT at 3-6 months, then CT at 18-24 months. - Low risk patients include individuals with minimal or absent history of smoking and other known risk factors. - High risk patients include individuals with a history or smoking or known risk factors. Radiology 2017 http://pubs.rsna.org/doi/full/10.1148/radiol.7031738226 2.9 cm indeterminate ovarian cyst. Recommend prompt follow-up with pelvic US. Reference: J Am Angle Radiol 2013;10:675-681 D/ / Quinton Paul MD / uQinton Paul MD Interpreting Provider: Quinton Paul MD Echocardiogram 03/04/19 15:53 Impressions: LVEF 65%. Normal LV chamber size, wall thickness and function. Mild left ventricular diastolic dysfunction. Normal right ventricular structure and function. Aortic valve not well visualized. Mild aortic sclerosis suggested by Doppler. Mean gradient 10 mmHg. Mild pulmonary hypertension. Estimated RVSP 43 mmHg. No pericardia effusion. Left Ventricular Wall Motion: Rest Echo Findings All wall segments showed normal motion. Findings: Study Quality * Technically adequate exam. ECG Findings * Normal sinus rhythm. Left Ventricle * LVEF 65%. * Normal LV chamber size, wall thickness and function. * Mild left ventricular diastolic dysfunction. Right Ventricle * Normal right ventricular structure and function. Left Atrium * Moderately dilated left atrium. Right Atrium * Moderately dilated right atrium. Interatrial Septum * No evidence of PFO by color Doppler. Aortic Valve * Aortic valve not well visualized. * No aortic regurgitation. * Mild aortic sclerosis suggested by Doppler. Mean gradient 10 mmHg. Mitral Valve * Normal mitral valve structure and function. * No mitral stenosis. * Trace mitral regurgitation. Tricuspid Valve * Normal tricuspid valve structure and function. * Trace tricuspid regurgitation. * Mild pulmonary hypertension. Estimated RVSP 43 mmHg. Pulmonic Valve * Pulmonic valve not well visualized. * No pulmonic regurgitation. Aorta * Normally sized aortic root. Pericardium * The pericardium appears normal. IVC * Normal IVC dimensions and inspiratory collapse. Pulmonary Artery * Normal visualized portions of the main pulmonary artery. Abdomen MRI 03/05/19 11:10 IMPRESSION: Intra and extrahepatic biliary ductal dilation with abrupt narrowing of duct at the ampulla. No visible choledocholithiasis, though this could be due to a small none visible calculus at the ampulla or biliary stricture. Consider ERCP if LFTs are elevated. Cholelithiasis. Adrenal and left renal lesions are not well visualized due to motion and lack of contrast. D/ / Gregg Soto MD / Gregg Soto MD Interpreting Provider: Gregg Soto MD Consult Discharge Plan - Plan Referrals: Sheila Brito, CONTENT COORDINATOR [Primary Care Provider] -
[2019-03-05] MEDS ORDERED: Iron Sucrose Complex 400 MG in 0.9 % Sodium Chloride 250 ML IVPB ONE (17:00)
[2019-03-06] MEDS ORDERED: Ondansetron 4 MG/2 ML VIAL IVP PRN (06:50)
[2019-03-06 07:32] LABS: Basophils % 0.8 %; Eosinophils % 0.6 %; Hematocrit 33.2 % (35.3-44.9); Hemoglobin 9.2 g/dL (11.5-15.4); Immature Granulocytes % 2.3 % (0-4); Lymphocytes # 0.5 K/mcL (0.6-4.6); Lymphocytes % 10.4 %; Mean Corpuscular HGB Conc 27.7 g/dL (31.6-35.5); Mean Corpuscular Hemoglobin 19.7 pg (28.0-33.3); Mean Corpuscular Volume 71.1 fL (83.0-100.0); Mean Platelet Volume 9.2 fL (9.4-12.4); Monocytes # 0.3 K/mcL (0.0-1.3); Monocytes % 6.3 %; Neutrophils # 4.1 K/mcL (1.6-8.9); Platelet Count 200 K/mcL (140-400); Red Blood Count 4.67 M/mcL (3.82-4.97); Red Cell Distribution Width 21.8 % (11.5-14.5); Segmented Neutrophils % 79.6 %
[2019-03-06 07:41] LABS: BUN/Creatinine Ratio 22 (6-26); Blood Urea Nitrogen 16 mg/dL (8-23); Calcium 9.8 mg/dL (8.6-10.3); Carbon Dioxide 24 mEq/L (23-29); Chloride 107 mEq/L (98-107); Glucose 123 mg/dL (70-105); Osmolality,Calculated 293 (280-300); Phosphorous 3.4 mg/dL (2.7-4.5); Potassium 3.6 mEq/L (3.5-5.1); Sodium 140 mEq/L (136-145); eGFR For Non-African Americans > 60 (> 60)
[2019-03-06 08:18] LABS: Anisocytosis 1+ (Not Present); Hypochromasia Present (Not Present); Platelet Estimate Normal (Normal)
[2019-03-06] MEDS: amLODIPine 5 MG TABLET PO SCH (08:18)
[2019-03-06] MEDS: Cyanocobalamin (B-12) 1,000 MCG/ML VIAL SQ SCH (08:18)
[2019-03-06] MEDS ORDERED: hydrALAZINE 25 MG TABLET PO SCH (08:24)
[2019-03-06] MEDS ORDERED: Lisinopril 20 MG TABLET PO STA (08:37)
--- NOTE | 2019-03-06 12:31 | Internal Med Progress Note ---
Hospitalist Progress Note - Encounter Date of Encounter: 03/06/19 Time of Encounter: 12:27 - Subjective Interval History: Patient seen and examined at bedside. Resting in chair and reported of feeling nauseous this morning which resolved after pt received IV zofran. She was also noted to have elevated BP. She received Lisinopril 20mg, Metoprolol 12.5mg PO this morning. Current BP within acceptable range She denies any headache, dizziness, sob, chest pain, abd pain, n/v, fever, or chills. I spoke with GI about pt's MRCP results, outpatient follow up is recommended Ten point ROS is negative except as listed above Tentative d/c in am depending on appropriate BP control - Exam Vitals: Temp Pulse Resp BP Pulse Ox 98.4 F 84 15 122/68 96 03/06/19 10:37 03/06/19 10:37 03/06/19 10:37 03/06/19 10:37 03/06/19 10:37 Exam: General: No acute distress, AAO x 3, obese HEENT: EOMI, PERRLA, NC/AT, no scleral icterus Respiratory: Clear to auscultate bilaterally, no wheezing, no rales Cardiovascular: Regular, Rate, Rhythm, + murmur GI: Soft, Non tender, non distended, normal bowel sounds Ext: no tenderness, positive pulses Neuro: AAO x 3, no focal deficits, CN II-XII grossly intact Rest of the clinical exam is noncontributory - Summary of Assessment and Plan Summary of Assessment and Plan: Ms. Gonzales is a 78 year old female with PMH of arthritis of bilateral knee and hip, hypertension who presents to the ER for evaluation of abnormal lab findings. Assessment/Plan: 1. Anemia s/p 2 units PRBC transfusion repeat H&H within acceptable range iron studies consistent with iron deficiency anemia pt receiving IV venofer. Hematology evaluation appreciated GI on board and evaluation appreciated. EGD negative for acute bleeding MRCP reviewed, outpatient follow up with GI recommended by GI 2. Uncontrolled HTN remains hypertensive continue Amlodipine to 10mg PO qdaily increased Lisinopril to 20mg PO qdaily added Metoprolol 12.5mg PO BID Hydralazine 10mg IV q6h PRN SBP>150 will closely monitor BP nausea likely secondary to hypertensive Urgency, now resolved 3. Chronic arthritis tylenol prn pain avoid NSAID use 4. Choledocholithiasis CT A/P shows hiatal hernia, circumferential distal esophageal wall thickening, gastritis, diverticulosis, mild intra-and extrahepatic biliary ductal dilation with noncalcified choledocholithiasis, gallstones MRCP report reviewed with GI outpatient follow up with GI recommended LFTs wnl DVT ppx: SCDs Care plan discussed with patient/consulting provider/RN - Time Spent with Patient Total time spent is greater than 50% in coordination of care (as documented) at patient's floor/unit and/or counseling patient: 25 - 35 minutes Internal Medicine: Result - Labs CBC & Chem 7: 03/06/19 07:08 03/06/19 07:08 Labs: Short CBC 03/06/19 Range/Units 07:08 WBC 5.2 (4.3-11.1) K/mcL Hgb 9.2 L (11.5-15.4) g/dL Hct 33.2 L (35.3-44.9) % Plt Count 200 (140-400) K/mcL Neutrophils # 4.1 (1.6-8.9) K/mcL BMP 03/06/19 07:08 Sodium 140 Potassium 3.6 Chloride 107 Carbon Dioxide 24 BUN 16 Creatinine 0.73 Glucose 123 H Calcium 9.8 Liver Function 03/05/19 Range/Units 02:54 Total Bilirubin 0.5 (0.3-1.0) mg/dL Direct Bilirubin 0.1 (0.0-0.2) mg/dL AST 14 (13-39) Units/L ALT 7 (7-52) Units/L Alkaline Phosphatase 67 (34-104) Units/L Albumin 3.7 (3.5-5.7) g/dL - Impressions Impressions Abdomen MRI 03/05/19 11:10 IMPRESSION: Intra and extrahepatic biliary ductal dilation with abrupt narrowing of duct at the ampulla. No visible choledocholithiasis, though this could be due to a small none visible calculus at the ampulla or biliary stricture. Consider ERCP if LFTs are elevated. Cholelithiasis. Adrenal and left renal lesions are not well visualized due to motion and lack of contrast. D/ / Gregg Soto MD / Gregg Soto MD Interpreting Provider: Gregg Soto MD Consult Discharge Plan - Plan Referrals: Sheila Brito CNP [Primary Care Provider] -
[2019-03-07] MEDS ORDERED: Lisinopril 20 MG TABLET PO SCH (09:00)
[2019-03-07] MEDS: amLODIPine 5 MG TABLET PO SCH (09:24)
[2019-03-07] MEDS: Cyanocobalamin (B-12) 1,000 MCG/ML VIAL SQ SCH (09:25)
[2019-03-07 09:43] LABS: Basophils % 0.2 %; Hemoglobin 9.7 g/dL (11.5-15.4); Immature Granulocytes % 0.5 % (0-4); Mean Platelet Volume 9.2 fL (9.4-12.4)
[2019-03-07 09:45] LABS: Eosinophils # 0.1 K/mcL (0.0-0.6); Hematocrit 35.3 % (35.3-44.9); Lymphocytes # 0.6 K/mcL (0.6-4.6); Mean Corpuscular HGB Conc 27.5 g/dL (31.6-35.5); Mean Corpuscular Hemoglobin 19.7 pg (28.0-33.3); Mean Corpuscular Volume 71.7 fL (83.0-100.0); Monocytes # 0.6 K/mcL (0.0-1.3); Monocytes % 6.8 %; Neutrophils # 7.9 K/mcL (1.6-8.9); Platelet Count 227 K/mcL (140-400); Red Blood Count 4.92 M/mcL (3.82-4.97); Red Cell Distribution Width 22.7 % (11.5-14.5); Segmented Neutrophils % 85.5 %
[2019-03-07 09:59] LABS: Anisocytosis 2+ (Not Present); Hypochromasia Present (Not Present); Platelet Estimate Normal (Normal); Poikilocytosis 1+ (Not Present)
[2019-03-07 10:03] LABS: BUN/Creatinine Ratio 22 (6-26); Blood Urea Nitrogen 19 mg/dL (8-23); Calcium 9.8 mg/dL (8.6-10.3); Carbon Dioxide 25 mEq/L (23-29); Chloride 105 mEq/L (98-107); Glucose 139 mg/dL (70-105); Magnesium 1.8 mg/dL (1.6-2.6); Osmolality,Calculated 291 (280-300); Phosphorous 3.8 mg/dL (2.7-4.5); Potassium 3.9 mEq/L (3.5-5.1); Sodium 138 mEq/L (136-145); eGFR For Non-African Americans > 60 (> 60)
[2019-03-07 10:06] VITALS: BP 124/69
--- NOTE | 2019-03-07 11:47 | Discharge Summary ---
- NOTES TO OUTPATIENT PROVIDER Notes to Outpatient Provider: Admitted for acute anemia, found to have severe iron deficiency. Also uncontrolled hypertension, started on Lisinopril, Amlodipine, and Metoprolol. Echo reported mild diastolic dysfunction. GI consulted, underwent EGD, no acute bleeding reported but CT abd/pelvis reported Choledocholithiasis, due to which had MRCP and further workup as outpatient recommended by GI. Closely monitor pt's H&H and BP. Date of Encounter: 03/07/19 Time of Encounter: 11:44 - Discharge Diagnosis (1) Anemia Priority: Primary Status: Acute Qualifiers: Anemia type: unspecified type Qualified Code(s): D64.9 - Anemia, unspecified (2) Hypertension, uncontrolled Priority: Secondary Status: Chronic (3) Choledocholithiasis Priority: Secondary Status: Chronic (4) Arthritis Priority: Secondary Status: Chronic Hospital course: Ms. Gonzales is a 78 year old female with past medical history of arthritis of bilateral knee and hip, hypertension who was sent to the ER for further evaluation of abnormal lab values done at her PCPs office. Patient was found to have severe anemia requiring packed red blood cell transfusion. She was further found to have severe iron deficiency anemia for which she was followed by hematology and received IV Venofer. She had CT chest, abdomen, pelvis done to rule out any underlying malignancy. Patient was found to have choledocholithiasis for which GI was consulted. Patient also went EGD to rule out any bleeding since the patient was reported of being on NSAIDs for chronic arthritis. EGD was negative. Based on CT abdomen findings, MRCP was ordered as per GIs recommendations. MRCP reported intra-and extra hepatic ductal dilatation. Since the patient was clinically asymptomatic with normal LFTs, outpatient follow-up with GI was recommended. Patient's hospital course was prolonged with uncontrolled hypertension due to which she was started on lisinopril, amlodipine, metoprolol for better blood pressure control. Patient also had an echocardiogram done which reported mild diastolic dysfunction. Prior to this hospitalization patient reported of not seeing a doctor in over 15 years. She reports of living alone and ambulates using a cane/walker. Patient is seen and examined with family present at bedside today. Patient states upon discharge she will be returning to one of her family member's home. She refused physical therapy, home health services on discharge. Patient is medically stable for discharge to home with outpatient follow-up with PCP, GI, hematology. Patient demonstrated understanding of her diagnosis and agrees with the discharge care and plan. All questions were answered. - Time Spent with Patient Total time spent providing and/or coordinating discharge services: 35 minutes Time spent: Greater than 30 minutes - Discharge Medications Prescriptions: New Ferrous Sulfate 325 mg PO DAILY@0800 #30 tablet Metoprolol [Lopressor] 12.5 mg PO BID #60 tablet amLODIPine [Norvasc] 10 mg PO DAILY #30 tablet Sennosides/Docusate Sodium [Senna Plus] 1 each PO DAILY #30 tablet Cyanocobalamin (B-12) [Vitamin B12] 1,000 mcg SQ DAILY vial Lisinopril [Zestril] 20 mg PO DAILY #30 tablet Continued Aspirin/Caffeine [Cvs Back-Body 500-32.5 mg Cplt] 2 tab PO BID PRN PRN Reason: Pain Gluc/Armen-MSM#1/C/Js/Tahir/Bor [Osteo Bi-Flex Caplet] 1 tab PO DAILY Acetaminophen/Diphenhydramine [Percogesic 325-12.5 mg Tablet] 1 tab PO HS PRN PRN Reason: Sleep Discontinued amLODIPine [Norvasc] 5 mg PO HS Naproxen Sodium [Aleve] 220 mg PO BID PRN PRN Reason: Pain Home Medications: Acetaminophen/Diphenhydramine [Percogesic 325-12.5 mg Tablet] 1 tab PO HS PRN 03/04/19 [History] Aspirin/Caffeine [Cvs Back-Body 500-32.5 mg Cplt] 2 tab PO BID PRN 03/04/19 [History] Gluc/Armen-MSM#1/C/Js/Tahir/Bor [Osteo Bi-Flex Caplet] 1 tab PO DAILY 03/04/19 [History] Cyanocobalamin (B-12) [Vitamin B12] 1,000 mcg SQ DAILY vial 03/07/19 [Rx] Ferrous Sulfate 325 mg PO DAILY@0800 #30 tablet 03/07/19 [Rx] Lisinopril [Zestril] 20 mg PO DAILY #30 tablet 03/07/19 [Rx] Metoprolol [Lopressor] 12.5 mg PO BID #60 tablet 03/07/19 [Rx] Sennosides/Docusate Sodium [Senna Plus] 1 each PO DAILY #30 tablet 03/07/19 [Rx] amLODIPine [Norvasc] 10 mg PO DAILY #30 tablet 03/07/19 [Rx] Allergies/Adverse Reactions: Allergy/AdvReac Type Severity Reaction Status Date / Time No Known Allergies Allergy Verified 03/04/19 13:40 Date of admission: 03/05/19 14:59 Primary care physician: Sheila Brito CNP Consults: 03/04/19 15:34 Consult to Gastroenterology [CONS] Routine Consulting Provider: Gastroenterology Ree Reason for Consult: anemia Call Completed: Yes Consult to Oncology Hematology [CONS] Routine Consulting Provider: Raya Davila Reason for Consult: anemia Call Completed: Yes 03/04/19 19:03 Consult to Mold Sprayer [CONS] Routine Reason for SW Consult: lives alone and doesnt think she will be able to anymore Discharging clinician: Nika Mariscal Anticipated date of discharge: 03/07/19 - Constitutional Vitals: Temp Pulse Resp BP Pulse Ox 99.0 F 80 15 124/69 98 03/07/19 10:05 03/07/19 10:05 03/07/19 10:05 03/07/19 10:05 03/07/19 10:05 General appearance: Present: A&O X 3 Exam: General: No acute distress, AAO x 3, obese HEENT: EOMI, PERRLA, NC/AT, no scleral icterus Respiratory: Clear to auscultate bilaterally, no wheezing, no rales Cardiovascular: Regular, Rate, Rhythm, + murmur GI: Soft, Non tender, non distended, normal bowel sounds Ext: no tenderness, positive pulses Neuro: AAO x 3, no focal deficits, CN II-XII grossly intact Rest of the clinical exam is noncontributory - Patient Status Disposition: Home, Self-Care Condition: Fair Functional capacity at discharge: uses cane/walker - Discharge Instructions Follow Up With: Sheila Brito CNP [Primary Care Provider] - Additional Instructions: 1. Please follow up with your primary care physician within 3-5 days after your discharge from the hospital. 2. Please follow up with GI and hematology within one week after your discharge from the hospital. 3. Your home medications have been changed as follows: -Amlodipine has been increased to 10mg once a day -Lisinopril 20mg once a day has been added -Metoprolol 12.5mg twice a day has been added -Ferrous sulfate 325mg once a day has been added 4. Please closely monitor your blood pressure twice a day at home, and take this BP log with you to your PCP's appointment. Your PCP will adjust your BP meds according to your home BP readings. 5. You are being started on iron supplementation (ferrous sulfate) for iron deficiency anemia. This medication can cause constipation and black stools. Stool softener prescription is also given. 6. Resume all other medications as prescribed by your PCP. - Diet and Activity Activity: increase activity as tolerated Diet: low fat, low cholesterol, low salt diet
== END 2019-03-07 14:36 | disposition home or self-care (01) | DRG 379 ==
LOC: 3ANU 10:17 → EMEROOARM 10:17 → SUATTDRO 16:52 → 3ANU 17:55
PROVIDERS: ADMIT Internal Medicine Nephrology; ATTEND Internal Medicine